=== PATIENT | female | born 1995 | race Caucasian/White ===

== ENCOUNTER 2022-03-10 13:05 | Emergency (ER) | payer OTHER ==
[~2022-03-10 13:05] MED LIST: COLACE100 MG PO; DIFLUCAN150 MG PO; IBUPROFEN600 MG PO; KEFLEX500 MG PO; NORCO 5-325 TA1 EACH PO; PRENATAL VITAM1 EAC3 PO
[2022-03-10 14:41] LABS: HEMOGLOBIN 14.8 gm/dl (12.3-15.3); RED BLOOD COUNT 5.4 M/UL (4.00-5.10); WHITE BLOOD COUNT 18.6 K/UL (4.5-11.0)
[2022-03-10 14:58] LABS: BUN/CREATININE RATIO 12 (0-10)
[2022-03-10] MEDS ORDERED: MACROBID 100 M100 MG PO (18:41)
[2022-03-10] MEDS ORDERED: IBUPROFEN600 MG PO (18:41)
[2022-03-10] MEDS ORDERED: ZOFRAN ODT 4 MG4 MG PO (18:41)
== END 2022-03-10 19:20 | disposition home or self-care (01) ==
LOC: ER1 13:05
PROVIDERS: Physician Assistant Medical
DX: N39.0 Urinary tract infection, site not specified (principal); D72.829 Elevated white blood cell count, unspecified
CPT/HCPCS: 80053; 81001; 83690; 84703; 85025; 96374; 96375; 99284; C9113; J1885; J2405; Q9967

== ENCOUNTER 2022-03-12 11:15 | Emergency (ER) | payer OTHER ==
[~2022-03-12 11:15] MED LIST changes: +MACROBID 100 M100 MG PO; +ZOFRAN ODT 4 MG4 MG PO
[2022-03-12 12:45] LABS: HEMOGLOBIN 13.9 gm/dl (12.3-15.3); RED BLOOD COUNT 5.08 M/UL (4.00-5.10)
[2022-03-12 12:52] LABS: WHITE BLOOD COUNT 13.3 K/UL (4.5-11.0)
[2022-03-12 13:12] LABS: BUN/CREATININE RATIO 12 (0-10)
[2022-03-12] MEDS ORDERED: REGLAN10 MG PO (15:01)
[2022-03-12] MEDS ORDERED: PROTONIX40 MG PO (15:01)
[2022-03-12] MEDS ORDERED: BENTYL 20MG TAB20 MG PO (15:01)
== END 2022-03-12 15:54 | disposition home or self-care (01) ==
LOC: ER1 11:15
PROVIDERS: Physician Assistant Medical
DX: R10.11 Right upper quadrant pain (principal); R11.2 Nausea with vomiting, unspecified; R19.7 Diarrhea, unspecified; R10.811 Right upper quadrant abdominal tenderness; Z88.1 Allergy status to other antibiotic agents; Z20.822 Contact with and (suspected) exposure to COVID-19
CPT/HCPCS: 76705; 80053; 81001; 83605; 83690; 84703; 85025; 96374; 96375; 99284; C9113; J2405; U0002